=== PATIENT | female | born 1980 | race Caucasian/White ===

== ENCOUNTER 2017-02-22 08:08 | Emergency (ER) | payer MEDICAID ==
[~2017-02-22] VITALS: Ht 182.9 cm; Wt 100.4 kg
[~2017-02-22 08:08] MED LIST: ELVITAB PO; IBUP-232 PO
[2017-02-22 08:12] VITALS: BP 173/86; PULSE 74; RESP 16; TEMP 97.8; O2SAT 97
[2017-02-22] MEDS ORDERED: [UNRECOGNIZED DRUG - OTHER] (08:28)
[2017-02-22] MEDS ORDERED: EMTR1TAB5 PO (08:29)
[2017-02-22] MEDS ORDERED: ACYC800T PO (08:38)
[2017-02-22] MEDS ORDERED: TRAM50TA PO (08:38)
--- NOTE | 2017-02-22 08:38 | PD ---
HPI . possible shingles Chief Complaint: Skin Problem Time Seen by Provider: 08:24 Travel History International Travel<30 days: No Contact w/Intl Traveler<30days: No Traveled to known affect area: No History of Present Illness HPI 36-year-old with history of HIV here with complaints of what she believes is shingles located on the right side of her neck. Patient said she noticed the rash pop up about 2 days ago and it is painful. She follows with Dr. Valentin for her infectious disease follow-ups and her next appointment is on March 12. She has no other issues. PFSH Past Medical History Asthma: Yes Autoimmune Disease: Yes (HIV) Blood Disorders: No Cancer: No Cardiovascular Problems: No Chemotherapy: No COPD: No Diminished Hearing: No Endocrine: No Gastrointestinal Disorders: No Genitourinary: No Immune Disorder: Yes (HIV +) Musculoskeletal: No Neurologic: No Psychiatric: No Reproductive: No Respiratory: Yes (ongoing cough, HIV +, on anitvirals. ) Radiation Therapy: No Sleep Apnea: No ?: Not LMP: 1April 2017 : 5 Para: 5 Tubal Ligation: Yes Past Surgical History AICD: No Section: Yes (X4) Gynecologic Surgery: Yes (C- SECTION) Hysterectomy: No (tubes tied) Joint Replacement: No Pacemaker: No Other Surgery: No Social History Alcohol Use: Yes (occ) Tobacco Use: Yes (cigars 1pp week) Substance Use: No Allergies-Medications (Allergen,Severity, Reaction): Coded Allergies: Erythromycins (Verified Allergy, Severe, Hives, 02/22/17) Bactrim (Verified Allergy, Mild, rash and itching, 02/22/17) Reported Meds & Prescriptions Reported Meds & Active Scripts Active Tramadol (Tramadol HCl) 50 Mg Tab 50 Mg PO Q8H PRN Acyclovir 800 Mg Tab 800 Mg PO 5 TIMES A DAY 10 Days Reported Truvada (Emtricitabine-Tenofovir Disoproxil Fumarate) 100-150 Mg Tab 1 Tab PO DAILY [trivicay] 0 DAILY Review of Systems General / Constitutional: No: Fever Eyes: No: Visual changes HENT: No: Headaches Cardiovascular: No: Chest Pain or Discomfort Respiratory: No: Shortness of Breath Gastrointestinal: No: Abdominal Pain Genitourinary: No: Dysuria Musculoskeletal: No: Pain Skin: Positive Rash Neurologic: No: Weakness Psychiatric: No: Depression Endocrine: No: Polydipsia Hematologic/Lymphatic: No: Easy Bruising Physical Exam Narrative GENERAL: AAO x 3, no acute distress, Well-nourished, well-developed patient. SKIN: Warm and dry. No visible rashes or bruising. Vesicles coalesced along the C2 dermatome without any evidence of infection. No erythema, edema or purulence. HEAD: Normocephalic and atraumatic. EYES: No scleral icterus. No injection or drainage. ENT: No nasal drainage noted. Airway patent. NECK: Supple, trachea midline. No JVD. CARDIOVASCULAR: Regular rate and rhythm without murmurs, gallops, or rubs. RESPIRATORY: Breath sounds equal bilaterally. No accessory muscle use. No rhonchi or rales. GASTROINTESTINAL: Abdomen soft, non-tender, nondistended. EXTREMITIES: No cyanosis or edema. BACK: Nontender without obvious deformity. No CVA tenderness. PSYCH: AAO x 3, normal affect. Data Data Last Documented VS Vital Signs Date Time Temp Pulse Resp B/P Pulse Ox O2 Delivery O2 Flow Rate FiO2 02/22/17 08:12 97.8 74 16 173/86 97 Room Air MDM Medical Decision Making Medical Screen Exam Complete: Yes Emergency Medical Condition: Yes Medical Record Reviewed: Yes Differential Diagnosis shingles, less likely cellulitis, less likely contact dermatitis Narrative Course 36-year-old with history of HIV here with complaints of what she believes is shingles located on the right side of her neck. Patient said she noticed the rash pop up about 2 days ago and it is painful. She follows with Dr. Valentin for her infectious disease follow-ups and her next appointment is on March 12. She has no other issues. Patient seen and examined she appears to have shingles in the C2 dermatome distribution. I will go ahead and treat her with a course of antivirals. Eye staining negative. Discussed risks of disseminated zoster. She will need to follow up with her infectious disease specialist. I discussed f /u this week. If she cannot get in before Monday, she will follow up with us. Discussed if any eye pain, to return to ED immediately. Patient verbalized understanding of instructions, questions were answered, and thanked me for their care. I advised them if their condition worsens, please return to the nearest emergency room for further care. Procedures Procedure Narrative Fluorescein eye staining procedure: b/l eyes proparacaine drops instilled into the b/l eyes Local anesthesia was accomplished. the eyes were inspected for any type lesion no acute findings Diagnosis Primary Impression: Shingles Qualified Code: B02.9 - Herpes zoster without complication Patient Instructions: General Instructions Additional Instructions: Please return to emergency department if your symptoms return or worsen. Follow up with your primary care provider. Take medications as prescribed. As we discussed, please follow-up with infectious disease this week. If you are unable to get in, please return to the emergency department on Monday for a recheck. If you develop any eye pain, please return to the emergency department immediately. Med/Other Pt SpecificInfo: Prescription(s) given Scripts Tramadol 50 Mg Tab50 Mg PO Q8H PRN (PAIN) #8 TAB Ref 0 Prov:Nuris Clarke DO 02/22/17 Acyclovir 800 Mg [id number] Mg PO 5 TIMES A DAY 10 Days Ref 0 Prov:Nuris Clarke DO 02/22/17 Disposition: 01 DISCHARGE HOME Condition: Stable Berenice Hensley Feb 22, 2017 08:37
[2017-02-23] MEDS ORDERED: DOLU1TAB4 PO (11:20)
== END 2017-02-22 08:51 | disposition home or self-care (01) ==
LOC: NEPK 08:08
DX: B02.9 Zoster without complications (principal); Z21 Asymptomatic human immunodeficiency virus [HIV] infection status; F17.290 Nicotine dependence, other tobacco product, uncomplicated
CPT/HCPCS: 99283

== ENCOUNTER 2017-07-29 14:23 | Emergency (ER) | payer MEDICAID ==
[~2017-07-29] VITALS: Ht 182.9 cm; Wt 99.0 kg
[~2017-07-29 14:23] MED LIST changes: +ACYC800T PO; +DOLU1TAB4 PO; -ELVITAB PO; +EMTR1TAB5 PO; -IBUP-232 PO; +TRAM50TA PO
[2017-07-29 14:26] VITALS: BP 137/67; PULSE 90; RESP 28; TEMP 98.3; O2SAT 84
[2017-07-29 14:30] VITALS: BP 130/82; PULSE 90; RESP 24; TEMP 98; O2SAT 87; O2SAT 90
[2017-07-29] MEDS ORDERED: ALBU6.7H INH (14:40)
[2017-07-29] MEDS ORDERED: ALBU1.25 NEB (14:40)
[2017-07-29 14:43] VITALS: RESP 24; O2SAT 90
[2017-07-29] MEDS ORDERED: SODIUM CHLORIDE 0.9% FLUSH 10 ML FLUSH IVF PRN (14:45)
[2017-07-29] MEDS ORDERED: methylPREDNISolone SOD SUCC 125 MG/2 ML VIAL IV PUSH ONE (14:45)
[2017-07-29] MEDS: RESP: ALBUTEROL 2.5 MG/IPRATROPIUM 0.5 MG NEB (SCH) INH ×3 (14:45→16:40)
--- NOTE | 2017-07-29 14:46 | PD ---
HPI Chief Complaint: Respiratory Distress Time Seen by Provider: 14:36 Travel History International Travel<30 days: No Contact w/Intl Traveler<30days: No Traveled to known affect area: No History of Present Illness HPI 37-year-old female that presents to the ED for evaluation of asthma exacerbation. Patient has a history of asthma as a child. Per patient she hasn 't had any issues until about a month ago when she was seen at [facility] for another asthma attack. She is a smoker. She also has a history of HIV which she does not know her CD4 count or viral load. Per patient she believes is gout that she is very compliant with her medications. She denies any chest pain but states that she feels very short of breath and wheezing. She did not have any medications today so she came here to get evaluated. She denies any abdominal pain. Nausea or vomiting. No urinary or bowel movement issues. She does have multiple DIFFERENT antibiotics. Symptoms started yesterday. No fevers chills or sweats. No sick contacts. No recent travel. PFSH Past Medical History Asthma: Yes Autoimmune Disease: Yes (HIV) Blood Disorders: No Cancer: No Cardiovascular Problems: No Chemotherapy: No COPD: No Diminished Hearing: No Endocrine: No Gastrointestinal Disorders: No Genitourinary: No Immune Disorder: Yes (HIV +) Musculoskeletal: No Neurologic: No Psychiatric: No Reproductive: No Respiratory: Yes (ongoing cough, HIV +, on anitvirals. ) Radiation Therapy: No Sleep Apnea: No ?: Not : 5 Para: 5 Tubal Ligation: Yes Past Surgical History AICD: No Section: Yes (X4) Gynecologic Surgery: Yes (C- SECTION) Joint Replacement: No Pacemaker: No Other Surgery: No Social History Alcohol Use: Yes (occ) Tobacco Use: Yes (cigars 1pp week) Substance Use: Yes (MARIJUANA) Allergies-Medications (Allergen,Severity, Reaction): Coded Allergies: azithromycin (Unverified Allergy, Severe, Hives, 07/29/17) erythromycin base (Unverified Allergy, Severe, Hives, 07/29/17) sulfamethoxazole (Unverified Allergy, Mild, rash and itching, 07/29/17) trimethoprim (Unverified Allergy, Mild, rash and itching, 07/29/17) Reported Meds & Prescriptions Reported Meds & Active Scripts Active Tessalon Perles (Benzonatate) 100 Mg Cap 100 Mg PO TID PRN Prednisone 20 Mg Tab 20 Mg PO BID 5 Days Albuterol Neb (Albuterol Sulfate) 2.5 Mg/3 Ml Neb 2.5 Mg NEB Q4HR NEB PRN Proair Hfa 8.5 GM Inh (Albuterol Sulfate) 90 Mcg/Act Aer 2 Puff INH Q4-6H PRN 108 mcg/actuation Cipro (Ciprofloxacin HCl) 500 Mg Tab 500 Mg PO BID 10 Days Reported Proventil Hfa 6.7 GM Inh (Albuterol Sulfate) Unknown Strength Aer Unknown Dose INH Q4-6H PRN Albuterol Neb (Albuterol Sulfate) Unknown Strength Neb Unknown Dose NEB Q6HR NEB PRN Tivicay (Dolutegravir Sodium) Unknown Strength Tab 1 Tab PO DAILY Truvada (Emtricitabine-Tenofovir Disoproxil Fumarate) 100-150 Mg Tab 1 Tab PO DAILY Review of Systems Except as stated in HPI: all other systems reviewed are Neg Physical Exam Narrative GENERAL: Well-nourished, well-developed patient in no apparent distress. SKIN: Warm and dry. HEAD: Atraumatic. Normocephalic. EYES: Pupils equal and round reactive to light and accommodation. No scleral icterus. No injection or drainage. ENT: No nasal bleeding or discharge. Mucous membranes pink and moist. TMs are clear with no sign of infection or perforation. No mastoid tenderness. Ear canals are intact bilaterally. No lymphadenopathy. Nostril mucosa is red and moist with clear mucus noted. No sinus tenderness to palpation noted. Tonsils are not enlarged or swollen. No ulvua Deviation. Tongue is midline. NECK: Trachea midline. No JVD. No meningeal signs noted CARDIOVASCULAR: Regular rate and rhythm. RESPIRATORY: No accessory muscle use. Patient has wheezing in all lung gupta. Breath sounds equal bilaterally. GASTROINTESTINAL: Abdomen soft, non-tender, nondistended. Hepatic and splenic margins not palpable. MUSCULOSKELETAL: Extremities without clubbing, cyanosis, or edema. No obvious deformities. NEUROLOGICAL: Awake and alert. No obvious cranial nerve deficits. Motor grossly within normal limits. Five out of 5 muscle strength in the arms and legs. Normal speech. PSYCHIATRIC: Appropriate mood and affect; insight and judgment normal. Data Data Last Documented VS Vital Signs Date Time Temp Pulse Resp B/P (MAP) Pulse Ox O2 Delivery O2 Flow Rate FiO2 07/29/17 15:32 90 22 93 Nasal Cannula 2.00 07/29/17 14:49 50 07/29/17 14:30 98.0 Orders Orders Basic Metabolic Panel (Bmp) (07/29/17 14:36) Complete Blood Count With Diff (07/29/17 14:36) Chest, Single Ap (07/29/17 14:36) Ecg Monitoring (07/29/17 14:36) Iv Access Insert/Monitor (07/29/17 14:36) Oximetry (07/29/17 14:36) Oxygen Administration (07/29/17 14:36) Methylprednisolone So Succ Inj (Solumedr (07/29/17 14:45) Albuterol-Ipratropium Neb (Duoneb Neb) (07/29/17 14:45) Sodium Chloride 0.9% Flush (Ns Flush) (07/29/17 14:45) Albuterol-Ipratropium Neb (Duoneb Neb) (07/29/17 16:15) Ciprofloxacin 400 Mg Premix (Cipro 400 M (07/29/17 16:45) Labs Laboratory Tests Test 07/29/17 14:54 White Blood Count 8.6 TH/MM3 Red Blood Count 4.33 MIL/MM3 Hemoglobin 14.9 GM/DL Hematocrit 43.2 % Mean Corpuscular Volume 99.8 FL Mean Corpuscular Hemoglobin 34.5 PG Mean Corpuscular Hemoglobin Concent 34.5 % Red Cell Distribution Width 13.5 % Platelet Count 243 TH/MM3 Mean Platelet Volume 8.8 FL Neutrophils (%) (Auto) 74.8 % Lymphocytes (%) (Auto) 16.0 % Monocytes (%) (Auto) 5.0 % Eosinophils (%) (Auto) 3.9 % Basophils (%) (Auto) 0.3 % Neutrophils # (Auto) 6.4 TH/MM3 Lymphocytes # (Auto) 1.4 TH/MM3 Monocytes # (Auto) 0.4 TH/MM3 Eosinophils # (Auto) 0.3 TH/MM3 Basophils # (Auto) 0.0 TH/MM3 CBC Comment DIFF FINAL Differential Comment Blood Urea Nitrogen 9 MG/DL Creatinine 0.81 MG/DL Random Glucose 91 MG/DL Calcium Level 9.1 MG/DL Sodium Level 137 MEQ/L Potassium Level 3.9 MEQ/L Chloride Level 105 MEQ/L Carbon Dioxide Level 24.2 MEQ/L Anion Gap 8 MEQ/L Estimat Glomerular Filtration Rate 79 ML/MIN MDM Medical Decision Making Medical Screen Exam Complete: Yes Emergency Medical Condition: Yes Medical Record Reviewed: Yes Interpretation(s) CBC & BMP Diagram 07/29/17 14:54 Calcium Level 9.1 Last Impressions Chest X-Ray 07/29/17 1436 Signed Impressions: Service Date/Time: Saturday, July 29, 2017 15:15 - CONCLUSION: Right middle lobe infiltrate most characteristic of pneumonia. The patient had prior pneumonia in this region in 2013. Smith Reyes MD Differential Diagnosis Hypoxia versus shortness of breath versus asthma exacerbation versus pneumonia Narrative Course 37-year-old female that presents to the ED for evaluation of shortness of breath. Patient was properly examined and was found to have signs and symptoms which appear to be very consistent with asthma exacerbation. Patient is a smoker and was recently seen at a different hospital a month ago for similar. Per patient feels similar to her old childhood asthma attacks. At this time patient was given breathing treatments as well as ordered solu Medrol. Chest x- ray and labs were ordered. Patient will be reassessed. Overall weeks he has improved with patient still somewhat hypoxic in the low 90s. Patient's blood work does show pneumonia. At this time patient was given more breathing treatments. Patient was started on Cipro. For the most part bowels and physical have been reassuring and her wheezing has improved. Per patient her breathing treatment Helped. She does not want to stay. I did offer admission secondary to her hypoxia. She is very adamant and that she has to go home to take care of her mentally disabled child. AMA: The risks of leaving against medical advice without further evaluation treatment were discussed with the patient. These risks include cardiac dysfunction, cardiac dysrhythmia, possible heart attack, possible stroke or . The patient indicated understanding of these risks and appeared to have the capacity to make this decision. Because patient does have a history of HIV and severe illness I will prescribe patient medications for her symptoms. She was told that she needs to come back to the ED if anything worsens. She understands risks of going home. Close follow with PCP. See ED worsening symptoms. Diagnosis Primary Impression: Pneumonia Qualified Codes: J18.1 - Lobar pneumonia, unspecified organism Additional Impression: Asthma Qualified Codes: J45.21 - Mild intermittent asthma with (acute) exacerbation Patient Instructions: General Instructions Additional Instructions: Take medications as prescribed. Anything changes come back to the ED. Follow with PCP. See ED for worsening symptoms. Avoid extrenous activity. Med/Other Pt SpecificInfo: Prescription(s) given Scripts Benzonatate (Tessalon Perles) 100 Mg Cap 100 MG PO TID Y for COUGH, #20 CAP 0 Refills Prov: KianTyesha Geovani DO 07/29/17 Prednisone (Prednisone) 20 Mg Tab 20 MG PO BID for 5 Days, #10 TAB 0 Refills Prov: Josie Langstonnifer Geovani DO 07/29/17 Albuterol Neb (Albuterol Neb) 2.5 Mg/3 Ml Neb 2.5 MG NEB Q4HR NEB Y for SHORTNESS OF BREATH, #60 NEBULE 0 Refills Prov: Josie Langstonnifer Geovani DO 07/29/17 Albuterol 8.5 GM Inh (Proair Hfa 8.5 GM Inh) 90 Mcg/Act Aer 2 PUFF INH Q4-6H Y for SHORTNESS OF BREATH, #1 INHALER 0 Refills 108 mcg/actuation Prov: Tyesha Langston DO 07/29/17 Ciprofloxacin (Cipro) 500 Mg Tab 500 MG PO BID for Infection for 10 Days, TAB 0 Refills Prov: LangstonTyesha Geovani DO 07/29/17 Disposition: 07 AGAINST MEDICAL ADVICE Condition: Stable Prosper Mcclain Jul 29, 2017 14:46
[2017-07-29 14:49] VITALS: O2SAT 91
[2017-07-29 15:12] LABS: AUTOMATED NEUTROPHIL # 6.4 TH/MM3 (1.8-7.7); BASOPHIL % 0.3 % (0.0-2.0); EOSINOPHIL # 0.3 TH/MM3 (0-0.4); EOSINOPHIL % 3.9 % (0.0-4.0); HEMATOCRIT 43.2 % (35.0-46.0); HEMO FLAGS DIFF FINAL; LYMPHOCYTE # 1.4 TH/MM3 (1.0-4.8); MEAN CELL VOLUME 99.8 FL (80.0-100.0); MEAN CORPUSCULAR HEMOGLOBIN 34.5 PG (27.0-34.0); MEAN CORPUSCULAR HGB CONC 34.5 % (32.0-36.0); NEUT % 74.8 % (16.0-70.0); PLATELET COUNT 243 TH/MM3 (150-450); RED BLOOD COUNT 4.33 MIL/MM3 (4.00-5.30); RED CELL DISTRIBUTION WIDTH 13.5 % (11.6-17.2); WHITE BLOOD COUNT 8.6 TH/MM3 (4.0-11.0)
[2017-07-29 15:32] VITALS: PULSE 90; RESP 22; O2SAT 93
[2017-07-29 15:48] LABS: BICARBONATE 24.2 MEQ/L (21.0-32.0); POTASSIUM 3.9 MEQ/L (3.5-5.1)
--- NOTE | 2017-07-29 16:27 | RADRPT ---
EXAM DATE/TIME: 07/29/2017 15:15 [facility] COMPARISON: CHEST PA & LAT, September 25, 2014, 13:06. CHEST SINGLE AP, January 22, 2014, 11:40. EXTERNAL COMPARISON : [facility] INDICATIONS : Wheezing. Cough. MEDICAL HISTORY : HIV Asthma. SURGICAL HISTORY : None. ENCOUNTER: Initial ACUITY: >1 year PAIN SCORE: 8/10 LOCATION: Right chest FINDINGS: A single AP portable erect view of the chest was obtained and demonstrates patchy opacity in the righ t middle lobe. The left lung is clear. There is no effusion. The heart and mediastinal structures are within normal limits. The bony thorax is intact multiple overlying electrocardiogram leads. CONCLUSION: Right middle lobe infiltrate most characteristic of pneumonia. The patient had prior pneumonia in thi s region in 2013. Smith Reyes MD on July 29, 2017 at 16:23 Board Certified Radiologist. This report was verified electronically.
[2017-07-29] MEDS ORDERED: CIPROFLOXACIN 400 MG PREMIX 200 ML IV ONE (16:45)
[2017-07-29] MEDS ORDERED: ALBUAER3 INH (17:37)
[2017-07-29] MEDS ORDERED: ALBU0.08 NEB (17:37)
[2017-07-29] MEDS ORDERED: BENZ100 PO (17:37)
[2017-07-29] MEDS ORDERED: PRED20 PO (17:37)
[2017-07-29] MEDS ORDERED: CIPR-9 PO (17:37)
== END 2017-07-29 18:33 | disposition left against medical advice (07) ==
LOC: NEPE 14:23
DX: J18.1 Lobar pneumonia, unspecified organism (principal); J45.21 Mild intermittent asthma with (acute) exacerbation; Z72.0 Tobacco use; Z21 Asymptomatic human immunodeficiency virus [HIV] infection status; Z87.09 Personal history of other diseases of the respiratory system; Z53.29 Procedure and treatment not carried out because of patient's decision for other reasons
CPT/HCPCS: 71010; 80048; 85025; 94640; 94664; 96374; 96375; 99285; J0744; J2930